=== PATIENT | male | born 1945 | race Caucasian/White ===

== ENCOUNTER → 2016-06-03 | Outpatient (CLI) | payer MEDICARE ==
--- NOTE | 2016-06-03 12:37 | PN ---
DATE OF SERVICE: 06/03/2016 A 71-year-old gentleman who has been followed in the Sleep Center for treatment of significant excessive daytime sleepiness. The patient is on treatment with CPAP but continued to have sleepiness during the day. That is why I proceeded with the CPAP titration test with the following multiple sleep latency test for objective evaluation of patient's symptoms of excessive daytime sleepiness. We discussed results of the test in detail. During CPAP titration with the pressure above 10 cm of water, patient respiration was under control. During the test, patient slept for 5 hours and 30 minutes. On the following day, multiple sleep latency test done consisted from 4 naps. Patient fell asleep quickly, mean sleep latency 5.9 minutes. Two REM periods documented during the naps. MEDICATIONS: Lipitor, hydrochlorothiazide, Lotrel, vitamins, aspirin. During physical exam, patient in no distress. BP 99/75, HR 72, RR 16. Weight 165, oxygen saturation at room air 94%. Temperature is 97.1. HEENT: PERRLA, EOMI. LUNGS: Clear. HEART: S1, S2, regular. ABDOMEN: Obese, soft, nontender. EXTREMITIES: No edema. IMPRESSION: 1. Obstructive sleep apnea-hypopnea syndrome in severe range, apnea-hypopnea index 39 by results of sleep study in a different institution, on control with CPAP with the pressure of more than 10 cm of water. In our institution, apnea-hypopnea index was 25.2. 2. Significant sleepiness during the day confirmed by multiple sleep latency tests. Two sleep onset REM periods have been documented, possible additional diagnosis of narcolepsy. 3. Hypertension. 4. Hyperlipidemia. 5. Status post uvulopalatopharyngoplasty. 6. Overweight. PLAN: 1. I will adjust pressure in CPAP unit to 10 cm of water. 2. Patient will be started on modafinil in the morning, dose will be adjusted to prevent any sleepiness. 3. Sleep hygiene with regular time in bed for at least 8 hours. 4. No driving if feeling any sleepiness. 5. Watching and losing weight. Thank you very much for allowing me to participate in the management of your patient. Sincerely, Shemar Cool MD, PhD, FAASM. Diplomat of [place] Board of [employer] Medicine, Sleep Medicine Board by [employer] Specialities [employer] Board of [employer] Medicine Comfort Advisor of [facility] [place]
== END | disposition home or self-care (01) ==
LOC: SLEEP 10:57
PROVIDERS: ATTEND Internal Medicine
DX: G47.33 Obstructive sleep apnea (adult) (pediatric) (principal); I10 Essential (primary) hypertension; E78.5 Hyperlipidemia, unspecified; E66.3 Overweight; Z98.890 Other specified postprocedural states; Z79.899 Other long term (current) drug therapy

== ENCOUNTER → 2016-12-16 | Outpatient (CLI) | payer MEDICARE, OTHER ==
--- NOTE | 2016-12-16 23:48 | PN ---
DATE OF SERVICE: 12/16/2016 This patient is a 71-year-old gentleman who has been followed in the sleep center for treatment of obstructive sleep apnea/hypopnea syndrome and narcolepsy. The patient continued to use his CPAP equipment every night for the whole night , waking up in the morning refreshed, but then he developing significant sleepiness during the day. He is using Ritalin 5 mg in the morning and in the mid part of the day, but with this dose of Ritalin, there are no changes in his sleepiness during the day. [place] Sleepiness Scale is very high at 18. Patient continues to be sleepy, falling asleep during the day. MEDICATIONS: 1. Lipitor. 2. Hydrochlorothiazide. 3. Lotrel. 4. Vitamins. 5. Aspirin. PHYSICAL EXAM: The patient is a pleasant 71-year-old gentleman without distress. VITAL SIGNS: Blood pressure 117/73, heart rate 76, respiratory rate 16. Height 5 feet 5 inches. Weight 173. BMI 28.7. Temperature 98.1. Oxygen saturation at room air 95%. GENERAL: A pleasant patient without distress. HEENT: PERRLA. EOMI. Evaluation of oropharynx showed tongue protrudes midline. Extremely low position of soft palate. NECK: Supple. No JVD. Thyroid is not palpable. LUNGS: Clear to percussion and to auscultation. Good air exchange. No wheezing or rhonchi. HEART: S1, S2 regular. No murmurs, gallops or rubs. ABDOMEN: Slightly obese. EXTREMITIES: No clubbing or cyanosis. METAL SASH SETTER: Awake, alert and oriented x3. Cranial nerves 2 through 7 are intact. There is no fasciculation or atrophy noted. No focal deficits observed. IMPRESSION: 1. Obstructive sleep apnea/hypopnea syndrome, in severe range, controlled with CPAP. 2. Narcolepsy. Patient continues to feel sleepiness on Ritalin. 3. Hypertension. 4. Hyperlipidemia. 5. Status post UPPP. 6. Overweight. PLAN: 1. Prescription for modafinil with adjustments of the dose for correction of patient's sleepiness during the day. 2. Continue to use CPAP equipment every night. 3. Sleep hygiene with regular time in bed for at least 8 hours. 4. Daytime naps permitted. 5. No driving if feeling any sleepiness. Thank you very much for allowing me to participate in the management of your patient. Sincerely, Shemar Stefadu. , PhD, FAASM. Diplomat of [employer] Board of Sleep Medicine, Sleep Medicine Board by [employer] Board [employer] Specialities [employer] Board of Internal Medicine Public Speaking Teacher of [facility] [place] [facility]
== END | disposition home or self-care (01) ==
LOC: SLEEP 15:02
PROVIDERS: ATTEND Internal Medicine
DX: G47.33 Obstructive sleep apnea (adult) (pediatric) (principal); G47.419 Narcolepsy without cataplexy; I10 Essential (primary) hypertension; E78.5 Hyperlipidemia, unspecified; E66.3 Overweight

== ENCOUNTER → 2020-01-03 | Outpatient (CLI) | payer MEDICARE, OTHER ==
--- NOTE | 2020-01-03 12:10 | CONS ---
CONSULTATION DATE OF SERVICE: 01/03/2020 A 74-year-old gentleman who has been re-evaluated in the Sleep Center for obstructive sleep apnea-hypopnea syndrome and narcolepsy. The patient was not seen in Sleep Clinic for more than 3 years. SLEEP SCHEDULE: From 11 p.m. to around 7 a.m., usually no problems with falling asleep. He wakes up once with nocturia. During the day, sometimes he may feel sleepy. [place] Sleepiness Scale increased to 12, but he is able to manage his sleepiness during the day without any additional medications now. Previously, I treated him with Ritalin because of documented epilepsy by results of multiple sleep latency tests. I checked patient's CPAP unit. He is using equipment every night 29/30 nights more than 4 hours with average usage 6.5 hours per night. Pressure is 10 cm of water. Leak is 31 L/minute. Apnea-hypopnea index is borderline 5.1. PAST MEDICAL HISTORY: Positive for recent coronary artery disease and CABG in July of 2019, hypertension, hypothyroidism, hyperlipidemia. PAST SURGICAL HISTORY: Again, CABG in July of 2019, UPPP in the past, hernia repair, rotator cuff surgery. MEDICATIONS: Atorvastatin, metoprolol, thyroxine, vitamin C, aspirin. SOCIAL HISTORY: Negative for smoking. Alcohol consumption rarely. FAMILY HISTORY: Hypertension, , diabetes. REVIEW OF SYSTEMS: Occasional awakenings from sleep with nocturia, episodes of sleepiness during the day. PHYSICAL EXAM: gentleman without distress, BP 138/77, HR 62, RR 16, height 5, 7, temperature 98.1, oxygen saturation at room air 95%. OROPHARYNX: Low position of soft palate. Mallampati 4. ABDOMEN: Obese. NECK: Supple, no JVD. Thyroid is not palpable. LUNGS: Clear to percussion and to auscultation. Good air exchange. No wheezing or rhonchi. HEART: S1, S2 regular. No murmurs, gallops, or rubs. EXTREMITIES: No clubbing or cyanosis. HEAD OF DRAMA: Awake, alert, and oriented X3. Cranial nerves 2 to 7 intact. There is no fasciculation or atrophy. noted. No focal deficits observed. IMPRESSION: 1. Obstructive sleep apnea-hypopnea syndrome for many years. Patient continues to use his CPAP equipment every night for the whole night, benefitting from treatment. A borderline apnea-hypopnea index reading from the machine 5.1. 2. History of narcolepsy documented previously by multiple sleep latency tests. Previously was on treatment with stimulants, now is able to manage his daytime sleepiness without any medications, prefers no any additional medications. 3. Coronary artery disease, status post CABG in July of 2019. 4. Hypertension. 5. Hypothyroidism. 6. Hyperlipidemia. 7. Status post UPPP. 8. Status post hernia repair. 9. Status post rotator cuff surgery. 10.Status post vasectomy. PLAN: 1. The patient will continue to use CPAP equipment every night for the whole night. 2. Watching and losing weight. 3. Sleep hygiene with #the time in bed for at least 7-1/2 to 8 hours. 4. No driving if feeling sleepiness. 5. Prescription for all necessary CPAP supplies including an Air Fit P10 medium nasal pillow mask, tube, filters. Thank you very much for allowing me to participate in the management of your patient. Sincerely, Shemar Cool MD, PhD, FAASM Diplomat of [place] [employer] of [employer] Specialties [employer] Board of Internal Medicine Customer Support Representative of [facility] [place] MMODL / IJN: [id number] /
== END | disposition home or self-care (01) ==
LOC: SLEEP 10:32
PROVIDERS: ATTEND Internal Medicine
DX: G47.33 Obstructive sleep apnea (adult) (pediatric) (principal); I25.10 Atherosclerotic heart disease of native coronary artery without angina pectoris; I10 Essential (primary) hypertension; E03.9 Hypothyroidism, unspecified; E78.5 Hyperlipidemia, unspecified; Z98.890 Other specified postprocedural states; Z95.1 Presence of aortocoronary bypass graft; Z98.52 Vasectomy status; Z99.89 Dependence on other enabling machines and devices

== ENCOUNTER → 2020-07-03 | Outpatient (CLI) | payer MEDICARE, OTHER ==
--- NOTE | 2020-07-03 20:49 | SFUN ---
SLEEP CENTER FOLLOW UP NOTE DATE OF SERVICE: 07/03/2020 This is a 75-year-old gentleman who has been followed in the sleep center for treatment of obstructive sleep apnea-hypopnea syndrome. The patient continues to use CPAP equipment every night for the whole night. No snoring with CPAP. At present his CPAP unit is staying on the night stand, which is the same level as his head. I checked his CPAP unit. CPAP pressure is 10 cm of water. Usage is 29/30 nights, and 27/30 nights for more than 4 hours with average usage 6.8 hours per night. Leak is 23 L/minute. Apnea-hypopnea index is 2.9, which is normal. [place] Sleepiness Scale is 11. The patient has a history of narcolepsy, also. He is not on any daytime stimulants at the present time. I discussed this issue with him in detail. He prefers to stay without additional medications. He is able to manage episodes of sleepiness during the day. MEDICATIONS: Lipitor 20 mg once a day, metoprolol 50 mg once a day, thyroxine 25 mcg once a day. PHYSICAL EXAMINATION: GENERAL: A pleasant patient in no distress. VITAL SIGNS: BP 150/89, HR 70, RR 18, height 5 feet 7 inches, weight 174, temperature 98.5, oxygen saturation at room air 95%. HEENT: PERRLA, EOMI. Evaluation of oropharynx showed tongue protrudes midline. Extremely low position of soft palate. Mallampati IV. NECK: Supple. No JVD. Thyroid is not palpable. LUNGS: Clear to percussion and to auscultation. Good air exchange. No wheezing or rhonchi. HEART: S1, S2 regular. No murmurs, gallops or rubs. ABDOMEN: Soft and nontender. Bowel sounds are present. No organomegaly appreciated. EXTREMITIES: No clubbing or cyanosis. BUSINESS OBJECTS CONSULTANT: Awake, alert, and oriented X3. Cranial nerves 2 to 7 intact. There is no fasciculation or atrophy. noted. No focal deficits observed. IMPRESSION: 1. Obstructive sleep apnea-hypopnea syndrome. The patient demonstrated great compliance with treatment, benefitting from treatment. 2. History of narcolepsy documented by multiple sleep latency test. The patient has some episodes of sleepiness during the day but can manage his sleepiness without any additional anti-sleeping medications and does not want to use any additional medications. 3. Coronary artery disease, status post coronary artery bypass grafting. 4. Hypertension. 5. Hypothyroidism. 6. Hyperlipidemia. 7. Status post UPPP. 8. Status post hernia repair. 9. Status post rotator cuff surgery. 10.Status post vasectomy. PLAN: 1. Patient should put the machine lower than the level of his head. 2. The patient should be drying his humidifier and tube in the morning. 3. Patient will continue to use PAP equipment every night for the whole night. 4. Sleep hygiene with regular time in bed for at least 7-1/2 to 8 hours. 5. Precautions related to driving. No driving if feeling sleepiness. 6. I will maintain all necessary prescription for PAP supplies including mask, tube, filters. 7. Watching weight. 8. Follow-up visit in 6 months or earlier if patient has any problems. Thank you very much for allowing me to participate in the management of your patient. Sincerely, Shemar Cool MD, PhD, FAASM Diplomat of [place] Board of Medical Specialties [place] Board of Internal Medicine Homebirth Midwife of [facility] [place] MMODL / LETIN: [id number] /
== END | disposition home or self-care (01) ==
LOC: SLEEP 11:39
PROVIDERS: ATTEND Internal Medicine
DX: G47.33 Obstructive sleep apnea (adult) (pediatric) (principal); I10 Essential (primary) hypertension; E03.9 Hypothyroidism, unspecified; E78.5 Hyperlipidemia, unspecified; Z98.52 Vasectomy status; Z98.890 Other specified postprocedural states; Z86.59 Personal history of other mental and behavioral disorders; Z95.1 Presence of aortocoronary bypass graft; Z79.899 Other long term (current) drug therapy; Z79.890 Hormone replacement therapy; Z99.89 Dependence on other enabling machines and devices

== ENCOUNTER → 2020-12-25 | Outpatient (CLI) | payer MEDICARE, OTHER ==
--- NOTE | 2020-12-26 01:29 | SFUN ---
SLEEP CENTER FOLLOW UP NOTE DATE OF SERVICE: 12/25/2020. 75-year-old gentleman has been followed in Sleep Center for treatment of obstructive sleep apnea-hypopnea syndrome and excessive daytime sleepiness. The patient continues to use his CPAP equipment every night for the whole night. No snoring with the machine. He still feels some sleepiness during the day. [place] Sleepiness Scale increased to 12. He is falling asleep in front of the TV, during the zoom meetings. I checked his CPAP unit. Pressure is 10 cm of water. Usage is 30/30 nights, 29/30 nights more than 4 hours. Leak is 24 L/minute. Apnea-hypopnea index is 5.1. MEDICATIONS: Metoprolol 50 mg once a day, thyroxine 25 mcg once a day, Lipitor 20 mg once a day. PHYSICAL EXAMINATION: GENERAL: Patient in no distress. VITAL SIGNS: BP 150/89, HR 55, RR 18. Height 5 feet 5-1/4 inches, weight 178 pounds. Body mass index 29.4, temperature 97.1. Oxygen saturation on room air 94%. Oropharynx extremely low position of soft palate. Mallampati 4. NECK: Supple, no JVD. Thyroid is not palpable. LUNGS: Clear to percussion and to auscultation. Good air exchange. No wheezing or rhonchi. HEART: S1, S2 regular. No murmurs, gallops, or rubs. ABDOMEN: Soft and nontender. Bowel sounds are present. No organomegaly appreciated. EXTREMITIES: No clubbing or cyanosis. INTERNET AND E BUSINESS PROJECT MANAGER: Awake, alert, and oriented X3. Cranial nerves 2 to 7 intact. There is no fasciculation or atrophy. noted. No focal deficits observed. IMPRESSION: 1. Obstructive sleep apnea-hypopnea syndrome. Patient demonstrated great compliance with treatment benefitting from treatment. Apnea-hypopnea index reading from the machine is 5.1, which is on the border. 2. History of narcolepsy. [place] Sleepiness Scale increased to 12. The patient continues to feel some sleepiness during the day. Narcolepsy previously has been confirmed by multiple sleep latency test. 3. Coronary artery disease, status post CABG. 4. Hypertension. 5. Hypothyroidism. 6. Hyperlipidemia. 7. Status post uvulopalatopharyngoplasty. 8. Status post hernia repair. 9. Status post rotator cuff surgery. 10.Status post vasectomy. PLAN: 1. I changed regimen in the machine to automatic range of the pressure is 6-11.4 cm of water because apnea-hypopnea index on the border. 2. Prescription for modafinil 200 mg once a day in the morning. 3. Patient will continue to use PAP equipment every night for the whole night. 4. Sleep hygiene with regular time in bed for at least 7-1/2 to 8 hours. 5. Precautions related to driving. No driving if feeling sleepiness. 6. I will maintain all necessary prescription for PAP supplies including mask, tube, filters. 7. Watching weight. 8. Follow-up visit in 6 months or earlier if patient has any problems. Thank you very much for allowing me to participate in management of your patient. Sincerely, Shemar Cool MD, PhD, FAASM Diplomat of [place] Board of Medical Specialties Sleep Medicine Board of [place] Board of Internal Medicine Gis Mapping Technician of [facility] [place] MMODL / LETIN: [id number] /
== END | disposition home or self-care (01) ==
LOC: SLEEP 11:53
PROVIDERS: ATTEND Internal Medicine
DX: G47.33 Obstructive sleep apnea (adult) (pediatric) (principal); I25.10 Atherosclerotic heart disease of native coronary artery without angina pectoris; Z95.1 Presence of aortocoronary bypass graft; I10 Essential (primary) hypertension; E03.9 Hypothyroidism, unspecified; E78.5 Hyperlipidemia, unspecified; Z98.52 Vasectomy status; Z96.619 Presence of unspecified artificial shoulder joint

== ENCOUNTER → 2021-06-24 | Outpatient (CLI) | payer MEDICARE, OTHER ==
--- NOTE | 2021-06-24 14:04 | SFUN ---
SLEEP CENTER FOLLOW UP NOTE DATE OF SERVICE: 06/24/2021 This 76-year-old gentleman has been followed in Sleep Center for treatment of obstructive sleep apnea-hypopnea syndrome and narcolepsy. The patient continues to use his CPAP equipment every night for the whole night. We discussed questions about humidity and cleaning system. The patient continues to take modafinil in the morning and with a low dose of medication -- usually patient takes just half of the tablet which is 100 mg -- the patient feels better during the day and it controls his sleepiness. I checked his CPAP unit. Range of the pressure is 6 to 11.4 with average pressure 10.7. Usage is 100% of nights and 29/30 nights for more than 4 hours, average 7.5 hours per night. Leak is 20 L/minute, which is borderline. Apnea-hypopnea index 4.7, which is normal. [place] Sleepiness Scale is slightly increased to 13, but again, as I mentioned above, the patient feels that his alertness is under control. MEDICATIONS: 1. Thyroxine 25 mcg once a day. 2. Metoprolol 50 mg once a day. 3. Modafinil 100 mg once a day. 4. 0.2% eyedrops. 5. Atorvastatin 40 mg once a day. 6. Supplements include multivitamins, additional vitamin D, Osteo Bi-Flex, zinc. PHYSICAL EXAMINATION: GENERAL: Pleasant patient in no distress. VITAL SIGNS: BP 138/76, HR 65, RR 16, height 5 feet 5-1/4 inches, weight 175.4 pounds. Patient lost 3 pounds since previous visit. Temperature 96.6, oxygen saturation at room air 97%. HEENT: PERRLA, EOMI, evaluation of oropharynx showed tongue protrudes midline. Extremely low position of soft palate; Mallampati IV. NECK: Supple, no JVD. Thyroid is not palpable. LUNGS: Clear to percussion and to auscultation. Good air exchange. No wheezing or rhonchi. HEART: S1, S2 regular. No murmurs, gallops, or rubs. ABDOMEN: Soft and nontender. Bowel sounds are present. No organomegaly appreciated. EXTREMITIES: No clubbing or cyanosis. SHOVEL LOADER OPERATOR: Awake, alert, and oriented X3. Cranial nerves 2 to 7 intact. There is no fasciculation or atrophy. noted. No focal deficits observed. IMPRESSION: 1. Obstructive sleep apnea-hypopnea syndrome. Patient demonstrated demonstrated 100% compliance with treatment. Normal respiration on CPAP. 2. 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 The patient's alertness is under control with low dose of modafinil. 3. Coronary artery disease, status post coronary artery bypass grafting. 4. Hypertension. 5. Hyperlipidemia. 6. Hypothyroidism. 7. Status post UPPP (uvulopalatopharyngoplasty). 8. Status post hernia repair. 9. Status post . 10.Status post rotator cuff surgery. PLAN: 1. We will maintain prescription for modafinil. 2. Patient will continue to use PAP equipment every night for the whole night. 3. Sleep hygiene with regular time in bed for at least 7-1/2 to 8 hours. 4. Precautions related to driving. No driving if feeling sleepiness. 5. I will maintain all necessary prescription for PAP supplies including mask, tube, filters. 6. Watching weight. 7. Follow-up visit in 6 months or earlier if patient has any problems. Thank you very much for allowing me to participate in the management of your patient. Sincerely, Shemar Cool MD, PhD, FAASM Diplomat of [place] Board of [employer] Specialties Sleep Medicine Board of [place] Board of Internal Medicine Shortage Worker of [facility] [place] CARRIE / RUBENS: [id number] /
== END ==
LOC: SLEEP 10:12
PROVIDERS: ATTEND Internal Medicine
DX: G47.33 Obstructive sleep apnea (adult) (pediatric) (principal); I10 Essential (primary) hypertension; E78.5 Hyperlipidemia, unspecified; E03.9 Hypothyroidism, unspecified; Z47.31 Aftercare following explantation of shoulder joint prosthesis

== ENCOUNTER → 2021-12-16 | Outpatient (CLI) | payer MEDICARE, OTHER ==
--- NOTE | 2021-12-16 10:58 | P.PN ---
Subjective DATE: 12/16/2021 FOLLOW UP VISIT. Patient with obstructive sleep apnea hypopnea syndrome and narcolepsy return to sleep center for follow-up visit. Information from previous visit have been reviewed. Patient is using PAP equipment every night for the whole night, getting PAP supplies in time. Patient described that in the morning he may experience some discomfort and discharges from his nose. [place] sleepiness scale is increased to 16. I checked information from PAP unit. PAP unit pressure 6-11.4 cm H2O. Usage is 100 % for more then 4 hours, average 7.1 hours per night. Leak is 23 l/m, which is in acceptable range. Apnea Hypopnea Index is 4.0, which is normal. Humidity at the level of 2. I teach patient how to adjust humidity level. Humidity was adjusted up to level of 4. MEDICATIONS:1. Thyroxine 25 g in the morning 2. Metoprolol 50 mg once a day 3. Atorvastatin 40 mg once a day 4. Modafinil 100 mg in the morning 5. Aspirin 81 mg once a day 6. Centrum multivitamins During physical exam: GENERAL: A pleasant patient without any distress. VITAL SIGNS: BP 133/79, HR 68, RR 16 , weight 174.2, temperature 97.2, oxygen saturation at room air 96 % . HEENT: PERRLA, EOMI.low position of soft palate, Mallapati4 . NECK: Supple. No JVD. LUNGS: Clear to percussion and to auscultation. Good air exchange. No wheezing or rhonchi. HEART: S1, S2 regular. ABDOMEN: Soft and nontender.[] EXTREMITIES: No clubbing or cyanosis. ENVIRONMENTAL COMPLIANCE TECHNICIAN: Awake, alert, and oriented x3. No focal deficit. Impressions: 1. Obstructive sleep apnea-hypopnea syndrome. Patient demonstrated great compliance with treatment, benefiting from treatment. 2. Narcolepsy confirmed by multiple sleep latency test. Alertness mostly on control with modafinil. 3. Hypertension. 4. Coronary artery disease, status post coronary artery bypass graft. 5. Hypothyroidism. 6. Hyperlipidemia. 7. Status post uvulopalatopharyngoplasty. 8. Status post hernia repair. 9. Status post rotator cuff surgery. Plan: 1. Continue using PAP equipment every night for the whole night. Humidity was adjusted to the level of 4. 2. To change air filter at least 1-2 times per month. 3. PAP unit should stay lower then position of the head. 4. Advised patient to remove all remaining water from humidifier canister daily and make it dry after each usage. Refill canister with fresh distilled water before each usage. 5. Sleep hygiene with regular time in bed for at least 8 hours. 6. Precautions related to driving. No driving if feel any sleepiness. 7. I will maintain prescription for PAP supplies including mask, tube, filters. 8. Follow up visit in 6 months or earlier if patient has any problems. 9. Watching weight. Thank you very much for allowing me to participate in the management of your patient. Shemar Cool MD, PhD, FAASM. Diplomat of [place] Board of Sleep Medicine, Sleep Medicine Board by [place] Board of Internal Medicine Customer Services Manager of [facility] [place]
== END | disposition home or self-care (01) ==
LOC: SLEEP 10:14
PROVIDERS: ATTEND Internal Medicine
DX: G47.33 Obstructive sleep apnea (adult) (pediatric) (principal); I10 Essential (primary) hypertension; I25.10 Atherosclerotic heart disease of native coronary artery without angina pectoris; E03.9 Hypothyroidism, unspecified; E78.5 Hyperlipidemia, unspecified; Z98.890 Other specified postprocedural states
CPT/HCPCS: 99212

== ENCOUNTER → 2022-06-16 | Outpatient (CLI) | payer MEDICARE, OTHER ==
--- NOTE | 2022-06-16 11:44 | P.PN ---
Subjective DATE: 06/16/2022 FOLLOW UP VISIT. Patient with obstructive sleep apnea hypopnea syndrome and narcolepsy return to sleep center for follow-up visit. Information from previous visit have been reviewed. Patient continued to take modafinil 100 mg in the morning. Patient is using PAP equipment every night for the whole night, getting PAP s upplies in time. The patient does not have significant problems with the mask, PAP unit and humidification. [place] sleepiness scale is 9, which is borderline. I checked information from PAP unit. PAP unit pressure 6-11.4 cm H2O. Usage is 100 % for more then 4 hours, average 7.5 hours per night. Leak is 23 l/m, which is in acceptable range. Apnea Hypopnea Index is 3.7, which is normal. MEDICATIONS:1. Thyroxine 25 g once a day 2. Metoprolol 50 mg once a day 3. Atorvastatin 40 mg once a day 4. Modafinil 100 mg in the morning 5. Brimonidine eyedrops twice a day 6. Aspirin 81 mg once a day During physical exam: GENERAL: A pleasant patient without any distress. VITAL SIGNS: BP 166/80, HR 66, RR 12, weight 181.0, temperature 98.4, oxygen saturation at room air 97 % . HEENT: PERRLA, EOMI.low position of soft palate, Mallapati 4 . NECK: Supple. No JVD. LUNGS: Clear to percussion and to auscultation. Good air exchange. No wheezing or rhonchi. HEART: S1, S2 regular. ABDOMEN: Soft and nontender.[] EXTREMITIES: No clubbing or cyanosis. CITY ENGINEER: Awake, alert, and oriented x3. No focal deficit. Impressions: 1. Obstructive sleep apnea-hypopnea syndrome. Patient demonstrated great compliance with treatment, benefiting from treatment. 2. 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 3. Coronary artery disease status post CABG. 4. Hypertension. 5. Hypothyroidism. 6. Hyperlipidemia. 7. Status post UPPP. 8. Status post hernia repair. 9. Status post rotator cuff surgery. Plan: 1. Continue using PAP equipment every night for the whole night. 2. To change air filter at least 1-2 times per month. 3. PAP unit should stay lower then position of the head. 4. Advised patient to remove all remaining water from humidifier canister daily and make it dry after each usage. Refill canister with fresh distilled water before each usage. 5. Sleep hygiene with regular time in bed for at least 8 hours. 6. Precautions related to driving. No driving if feel any sleepiness. 7. I will maintain prescription for PAP supplies including mask, tube, filters. 8. Watching weight. 9. Follow up visit in 6 months or earlier if patient has any problems. Thank you very much for allowing me to participate in the management of your patient. Shemar Cool MD, PhD, FAASM. Diplomat of [place] Board of Sleep Medicine, Sleep Medicine Board by [employer] Board of Internal Medicine Researcher of [facility] [place]
== END ==
LOC: SLEEP 11:01
PROVIDERS: ATTEND Internal Medicine
DX: G47.33 Obstructive sleep apnea (adult) (pediatric) (principal); Z99.89 Dependence on other enabling machines and devices; E03.9 Hypothyroidism, unspecified; E78.5 Hyperlipidemia, unspecified; Z98.890 Other specified postprocedural states; I10 Essential (primary) hypertension; Z95.1 Presence of aortocoronary bypass graft; G47.419 Narcolepsy without cataplexy; Z79.899 Other long term (current) drug therapy; Z79.890 Hormone replacement therapy
CPT/HCPCS: 99212

== ENCOUNTER → 2022-12-01 | Outpatient (CLI) | payer MEDICARE, OTHER ==
--- NOTE | 2022-12-01 12:16 | P.PN ---
Subjective DATE: 12/01/2022 FOLLOW UP VISIT. Patient with obstructive sleep apnea hypopnea syndrome return to sleep center for follow-up visit. Information from previous visit have been reviewed. Patient is using PAP equipment every night for the whole night, getting PAP supplies in time. The patient does not have significant problems with the mask, PAP unit and humidification. [place] sleepiness scale is 10, which is borderline. I checked information from PAP unit. PAP unit pressure 6-11.4 cm H2O. Usage is 100 % for more then 4 hours, average 6.6 hours per night. Leak is 32 l/m, which is in acceptable range. Apnea Hypopnea Index is 1.6, which is normal. MEDICATIONS:1. Thyroxine 25 g once a day 2. . Metoprolol 50 mg once a day 3. Crestor 20 mg once a day 4. Modafinil 100 mg once a day 5. Timolol eyedrops During physical exam: GENERAL: A pleasant patient without any distress. VITAL SIGNS: BP 155/75, HR 56, RR 12 , weight 164.8, temperature 97.0, oxygen saturation at room air 97 % . HEENT: PERRLA, EOMI.low position of soft palate, Mallapati 4 . NECK: Supple. No JVD. LUNGS: Clear to percussion and to auscultation. Good air exchange. No wheezing or rhonchi. HEART: S1, S2 regular. ABDOMEN: Soft and nontender.[] EXTREMITIES: No clubbing or cyanosis. FACTORY HELPER: Awake, alert, and oriented x3. No focal deficit. Impressions: 1. Obstructive sleep apnea-hypopnea syndrome. Patient demonstrated great compliance with treatment, benefiting from treatment. 2. 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 3. Hypertension. 4. Coronary artery disease, status post CABG. 5. Hypothyroidism. 6. Hyperlipidemia. 7. Status post UPPP. 8. Status post hernia repair. 9. Status post rotator cuff surgery. Plan: 1. Continue using PAP equipment every night for the whole night. 2. To change air filter at least 1-2 times per month. 3. PAP unit should stay lower then position of the head. 4. Advised patient to remove all remaining water from humidifier canister daily and make it dry after each usage. Refill canister with fresh distilled water before each usage. 5. Sleep hygiene with regular time in bed for at least 8 hours. 6. Precautions related to driving. No driving if feel any sleepiness. 7. I will maintain prescription for PAP supplies including mask, tube, filters. 8. Follow up visit in 6 months or earlier if patient has any problems. 9. Watching weight. Thank you very much for allowing me to participate in the management of your patient. Shemar Cool MD, PhD, FAASM. Diplomat of [place] [employer], Sleep Medicine Board by [place] [employer] Housing Project Manager of [facility] [place]
== END ==
LOC: 3 N SLEEP 11:29
PROVIDERS: ATTEND Internal Medicine
DX: G47.33 Obstructive sleep apnea (adult) (pediatric) (principal); G47.419 Narcolepsy without cataplexy; I10 Essential (primary) hypertension; E78.5 Hyperlipidemia, unspecified; E03.9 Hypothyroidism, unspecified; I25.10 Atherosclerotic heart disease of native coronary artery without angina pectoris; Z95.1 Presence of aortocoronary bypass graft; Z79.899 Other long term (current) drug therapy; Z98.890 Other specified postprocedural states; Z95.2 Presence of prosthetic heart valve; Z99.89 Dependence on other enabling machines and devices
CPT/HCPCS: 99212

== ENCOUNTER 2023-03-01 22:48 | Emergency (ER) | payer MEDICARE, OTHER ==
[2023-03-01] MEDS ORDERED: SODIUM CHLORIDE 0.9% 1,000 ML IV STA (23:32)
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
[2023-03-02 00:13] LABS: Basophils % (A) 0 %; Eosinophils # (A) 0.4 k/uL (0-0.7); Eosinophils % (A) 5 %; HCT 40.1 % (39.0-53.0); HGB 13.5 gm/dL (13.0-17.5); Lymphocytes # (A) 1.6 k/uL (1.0-4.8); Lymphocytes % (A) 20 %; MCH 30.2 pg (25.0-35.0); MCHC 33.8 g/dL (31.0-37.0); MCV 89.6 fL (80.0-100.0); Mean Platelet Volume 8.2; Monocytes # (A) 0.6 k/uL (0-1.0); Monocytes % (A) 7 %; Neutrophils # (A) 5.5 k/uL (1.3-7.7); Neutrophils % (A) 67 %; Platelet Count 214 k/uL (150-450); RBC 4.48 m/uL (4.30-5.90); RDW 12.5 % (11.5-15.5); WBC 8.3 k/uL (3.8-10.6)
[2023-03-02 00:27] LABS: ALT 21 U/L (4-49); AST 38 U/L (17-59); African American GFR (CKD) >90 (>60 ml/min/1.73 sqM); Albumin 4.2 g/dL (3.5-5.0); Alkaline Phosphatase 95 U/L (38-126); Anion Gap 12 mmol/L; Blood Urea Nitrogen 14 mg/dL (9-20); Calcium 9.2 mg/dL (8.4-10.2); Carbon Dioxide 22 mmol/L (22-30); Chloride 104 mmol/L (98-107); Glucose 95 mg/dL (74-99); Magnesium 1.9 mg/dL (1.6-2.3); Non-African American GFR(CKD) 79 (>60 ml/min/1.73 sqM); Phosphorus 4.1 mg/dL (2.5-4.5); Potassium 4.1 mmol/L (3.5-5.1); Sodium 138 mmol/L (137-145); Total Bilirubin 0.4 mg/dL (0.2-1.3); Total Protein 6.5 g/dL (6.3-8.2)
[2023-03-02 00:36] LABS: NT-Pro-B-Type Natriuretic Pept 518 pg/mL
[2023-03-02 00:40] LABS: Partial Thromboplastin Time 25.6 sec (22.0-30.0); Prothrombin Time 10.2 sec (9.0-12.0)
--- NOTE | 2023-03-02 03:20 | CT ---
EXAM: CT Head Without Intravenous Contrast CLINICAL HISTORY: ITS.REASON CT Reason: pain TECHNIQUE: Axial computed tomography images of the head/brain without intravenous contrast. CTDI is 25.8 mGy and DLP is 764 mGy-cm. This CT exam was performed using one or more of the following dose reduction techniques: automated exposure control, adjustment of the mA and/or kV according to patient size, and/or use of iterative reconstruction technique. COMPARISON: No relevant prior studies available. FINDINGS: Brain: Trace acute left sided subdural hematoma along the left vertex. No herniation or midline shift. Ventricles: No hydrocephalus. Bones/joints: Unremarkable. Soft tissues: Unremarkable. Sinuses: Right frontal air fluid level. Severely opacified right ethmoid sinus. Mastoid air cells: Clear. IMPRESSION: Trace acute left sided subdural hematoma along the left vertex. No herniation or midline shift. EXAM: CT Cervical Spine Without Intravenous Contrast CLINICAL HISTORY: ITS.REASON CT Reason: pain TECHNIQUE: Axial computed tomography images of the cervical spine without intravenous contrast. CTDI is 14.8 mGy and DLP is 383.5 mGy-cm. This CT exam was performed using one or more of the following dose reduction techniques: automated exposure control, adjustment of the mA and/or kV according to patient size, and/or use of iterative reconstruction technique. COMPARISON: No relevant prior studies available. FINDINGS: Vertebrae: No acute fracture. Discs/spinal canal/neural foramina: degenerative changes. Soft tissues: No prevertebral swelling. IMPRESSION: No acute fracture or subluxation.
--- NOTE | 2023-03-02 04:02 | CT ---
EXAM: CT Head and Maxillofacial Without Intravenous Contrast CLINICAL HISTORY: ITS.REASON CT Reason: pain TECHNIQUE: Axial computed tomography images of the head/brain and face without intravenous contrast. CTDI is 15 mGy and DLP is 383 mGy-cm. This CT exam was performed using one or more of the following dose reduction techniques: automated exposure control, adjustment of the mA and/or kV according to patient size, and/or use of iterative reconstruction technique. COMPARISON: No relevant prior studies available. FINDINGS: Bones/joints: No acute fracture. Soft tissues: Unremarkable. Sinuses: Unremarkable. No acute sinusitis. Mastoid air cells: Unremarkable. No mastoid effusion. Orbits: Unremarkable. IMPRESSION: No acute fracture.
[2023-03-02 04:30] VITALS: BP 141/72; PULSE 73; RESP 16; TEMP 98.3
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
== END 2023-03-02 04:14 | disposition other institution (70) ==
LOC: EC 22:48
DX: S06.5XAA Traumatic subdural hemorrhage with loss of consciousness status unknown, initial encounter (principal); G47.419 Narcolepsy without cataplexy; R55 Syncope and collapse; I25.10 Atherosclerotic heart disease of native coronary artery without angina pectoris; V47.5XXA Car driver injured in collision with fixed or stationary object in traffic accident, initial encounter; Y92.410 Unspecified street and highway as the place of occurrence of the external cause
CPT/HCPCS: 36415; 70450; 70486; 71250; 72125; 74176; 80053; 83605; 83735; 83880; 84100; 84484; 85025; 85610; 85730; 93005; 99291

== ENCOUNTER → 2023-03-16 | Outpatient (CLI) | payer MEDICARE, OTHER ==
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
== END ==
LOC: 3 N SLEEP 14:31
PROVIDERS: ATTEND Internal Medicine
DX: G47.33 Obstructive sleep apnea (adult) (pediatric) (principal); E03.9 Hypothyroidism, unspecified; E78.5 Hyperlipidemia, unspecified; G47.419 Narcolepsy without cataplexy; I10 Essential (primary) hypertension; I25.10 Atherosclerotic heart disease of native coronary artery without angina pectoris; Z79.899 Other long term (current) drug therapy; Z95.1 Presence of aortocoronary bypass graft; Z98.890 Other specified postprocedural states; Z99.89 Dependence on other enabling machines and devices
CPT/HCPCS: 99212

== ENCOUNTER → 2023-04-13 | Outpatient (CLI) | payer MEDICARE, OTHER ==
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
== END ==
LOC: 3 N SLEEP 15:33
PROVIDERS: ATTEND Internal Medicine
DX: G47.33 Obstructive sleep apnea (adult) (pediatric) (principal); G47.419 Narcolepsy without cataplexy; I10 Essential (primary) hypertension; I25.10 Atherosclerotic heart disease of native coronary artery without angina pectoris; E03.9 Hypothyroidism, unspecified; E78.5 Hyperlipidemia, unspecified; Z90.89 Acquired absence of other organs; Z98.890 Other specified postprocedural states; Z95.1 Presence of aortocoronary bypass graft; Z79.899 Other long term (current) drug therapy; Z99.89 Dependence on other enabling machines and devices
CPT/HCPCS: 99212

== ENCOUNTER → 2023-10-12 | Outpatient (CLI) | payer MEDICARE, OTHER ==
[2023-10-12 16:26] VITALS: BP 139/77; PULSE 60; RESP 16; TEMP 98.1
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
== END ==
LOC: 3 N SLEEP 16:04
PROVIDERS: ATTEND Internal Medicine
DX: G47.33 Obstructive sleep apnea (adult) (pediatric) (principal); G47.419 Narcolepsy without cataplexy; I10 Essential (primary) hypertension; I25.10 Atherosclerotic heart disease of native coronary artery without angina pectoris; E03.9 Hypothyroidism, unspecified; E78.5 Hyperlipidemia, unspecified; Z95.1 Presence of aortocoronary bypass graft; Z99.89 Dependence on other enabling machines and devices; Z87.828 Personal history of other (healed) physical injury and trauma; Z79.899 Other long term (current) drug therapy; Z79.02 Long term (current) use of antithrombotics/antiplatelets
CPT/HCPCS: 99212

== ENCOUNTER → 2024-06-07 | Outpatient (CLI) | payer MEDICARE, OTHER ==
[2024-06-07 11:14] VITALS: BP 124/65; PULSE 58; RESP 16; TEMP 97.3
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
== END ==
LOC: 3 N SLEEP 11:00
PROVIDERS: ATTEND Internal Medicine
DX: G47.33 Obstructive sleep apnea (adult) (pediatric) (principal); I25.10 Atherosclerotic heart disease of native coronary artery without angina pectoris; G47.419 Narcolepsy without cataplexy; I10 Essential (primary) hypertension; E78.5 Hyperlipidemia, unspecified; E03.9 Hypothyroidism, unspecified; Z95.1 Presence of aortocoronary bypass graft; Z86.69 Personal history of other diseases of the nervous system and sense organs
CPT/HCPCS: 99212